=== PATIENT | male | born 1975 | race African-American/Black ===

== ENCOUNTER 2021-02-26 10:51 | Outpatient (CLI) | payer BC | END 2021-02-26 10:52 | disposition home or self-care (01) | LOC: BICMRI 10:51 | PROVIDERS: ATTEND Physician Assistant | DX: S22.048D Other fracture of fourth thoracic vertebra, subsequent encounter for fracture with routine healing (principal); S22.058D Other fracture of T5-T6 vertebra, subsequent encounter for fracture with routine healing; M47.814 Spondylosis without myelopathy or radiculopathy, thoracic region | CPT/HCPCS: 72146 ==